=== PATIENT | male | born 1955 | race Two or more races ===

== ENCOUNTER 2020-02-13 08:53 | Emergency (ER) | payer MEDICARE ==
[~2020-02-13] VITALS: Ht 170.2 cm; Wt 93.0 kg
[2020-02-13 09:06] VITALS: BP 138/91
--- NOTE | 2020-02-13 09:12 | NUR ---
Pt to lobby to wait to be seen.
--- NOTE | 2020-02-13 09:40 | NUR ---
Dr. Adler evaluating patient in triage.
[2020-02-13] MEDS ORDERED: TETRACAINE HCL/PF 0.5% OPTH 4 ML BTL OP ONE (09:45)
[2020-02-13] MEDS ORDERED: FLUORESCEIN OPTH STRIP 1 MG OP ONE (09:45)
--- NOTE | 2020-02-13 10:11 | NUR ---
65 y/o male from home c/o right eye discomfort s/p getting metal in eye while grinding metal on 02/08. Pt denies pain but states discomfort. Blurred vision to right eye. Slight redness noted. VSS medhx: HTN
--- NOTE | 2020-02-13 11:06 | NUR ---
VISUAL ACUITY BEFORE: R 20/200, L 20/40, BOTH UNKNOWN VISUAL ACUITY AFTER: R 20/200, L 20/40, BOTH 20/40
--- NOTE | 2020-02-13 11:13 | NUR ---
Patient moved to lobby, waiting for CT
--- NOTE | 2020-02-13 11:43 | NUR ---
Patient taken to CT via wheelchair
[2020-02-13 12:46] VITALS: BP 130/85
--- NOTE | 2020-02-13 12:46 | NUR ---
Patient discharged with v/s stable. Written and verbal after care instructions given and explained. Patient alert, oriented and verbalized understanding of instructions. Ambulatory with steady gait. All questions addressed prior to discharge. ID band removed. Patient advised to follow up with PMD. Rx of Erythromycin ointment given. Patient educated on indication of medication including possible reaction and side effects. Opportunity to ask questions provided and answered.
== END 2020-02-13 12:46 | disposition home or self-care (01) ==
LOC: MED 08:53
DX: S05.01XA Injury of conjunctiva and corneal abrasion without foreign body, right eye, initial encounter (principal); X58.XXXA Exposure to other specified factors, initial encounter; Y93.89 Activity, other specified; Y92.89 Other specified places as the place of occurrence of the external cause; Y99.8 Other external cause status
CPT/HCPCS: 70480; 90471; 90715; 99284